=== PATIENT | male | born 1965 | race Caucasian/White ===

== ENCOUNTER 2017-11-05 15:51 | Emergency (ER) | payer OTHER ==
[~2017-11-05] VITALS: Ht 172.7 cm; Wt 72.6 kg
--- NOTE | 2017-11-05 16:31 | ER Report ---
History and Physical Time Seen By MD: 16:04 Hx. of Stated Complaint: PT SEEN IN ULTRASOUND TODAY. HAS CLOT IN RIGHT LEG. HERE FOR LABS AND MEDICATION. HPI/ROS CHIEF COMPLAINT: DVT HISTORY OF PRESENT ILLNESS: This is a 51-year-old male who presents to the emergency department from the ultrasound department for a DVT confirmed by ultrasound. The patient was seen in May by Dr. Bains at [facility] for right calf pain which they attribute it to a muscle tear, several weeks later the patient return to [facility] for reevaluation was still uncomfortable they still felt that this was a calf tear. The patient states that he hasn't had any issues really since, until this past he did develop some right leg discomfort with swelling. Patient states that the swelling increased over the course the weekend and down into his calf however the majority of the pain and edema were in the thigh. He followed up with Dr. Bains today, was sent for an ultrasound which was positive for a clot from femoral down to the calf. Dr. Bains subsequently sent the to the emergency department for a hypercoagulable panel as well as anticoagulant dosing. Patient denies shortness of breath, chest pain, nausea, vomiting, diarrhea, headaches no dysuria or diarrhea. REVIEW OF SYSTEMS: Constitutional: No fever, no chills. Eyes: No discharge. ENT: No sore throat. Cardiovascular: No chest pain, no palpitations. Respiratory: No cough, no shortness of breath. Gastrointestinal: No abdominal pain, no vomiting. Genitourinary: No hematuria. Musculoskeletal: As above. Skin: No rashes. Neurological: No headache. Allergies: Coded Allergies: No Known Drug Allergies (Unverified , 11/05/17) Home Meds Active Scripts Rivaroxaban 15 Mg (XARELTO 15 MG) 15 Mg Tablet, 15 MG PO BID for 21 Days, #42 TAB Prov:CARMENCITAGLENDARADHABIGG QUALITY CHECKER-BC 11/05/17 Past Medical/Surgical History Patient has a past medical and surgical history of rosacea, wears glasses, hernia repair as a child, ear tubes, vasectomy and reversal. Reviewed Nurses Notes: Yes Hx Substance Use Disorder: No Hx Alcohol Use: No Constitutional Vital Sign - Last 24 Hours 11/05/17 11/05/17 15:56 17:58 Pulse 96 72 Resp 16 18 B/P (MAP) 144/103 132/87 (102) Pulse Ox 95 84 O2 Delivery Room Air Room Air Physical Exam General Appearance: The patient is alert, has no immediate need for airway protection and no signs of toxicity. Eyes: Pupils equal and round no pallor or injection. ENT, Mouth: Mucous membranes are moist. Respiratory: There are no retractions, lungs are clear to auscultation. Cardiovascular: Regular rate and rhythm, no murmurs, clicks or rubs. Gastrointestinal: Abdomen is soft and non tender, no masses, bowel sounds normal. Neurological: Alert and oriented 4. Moving all extremities. Following all commands. No focal neuro deficits. Skin: Warm and dry, no rashes. Musculoskeletal: Neck is supple non tender. Extremities right leg discomfort, the right leg is slightly larger than the left leg. The right calf is 38cm, left calf is 35 cm. Dorsalis pedal and posterior tibial pulses palpable. Cap refill <2sec. DIFFERENTIAL DIAGNOSIS: After history and physical exam differential diagnosis was considered for DVT. Medical Decision Making Data Points Result Diagram: 11/05/17 1639 11/05/17 1639 Laboratory Hematology Test 11/05/17 16:39 Red Blood Count 5.39 M/uL (4.00-5.60) Mean Corpuscular Volume 86.3 fL (80.0-96.0) Mean Corpuscular Hemoglobin 29.4 pg (26.0-33.0) Mean Corpuscular Hemoglobin Concent 34.1 g/dL (32.0-36.0) Red Cell Distribution Width 14.3 % (11.5-14.5) Mean Platelet Volume 6.9 fL (7.2-11.1) Neutrophils (%) (Auto) 66.0 % (39.4-72.5) Lymphocytes (%) (Auto) 23.4 % (17.6-49.6) Monocytes (%) (Auto) 7.0 % (4.1-12.4) Eosinophils (%) (Auto) 2.3 % (0.4-6.7) Basophils (%) (Auto) 1.3 % (0.3-1.4) Nucleated RBC Relative Count (auto) 0.0 /100WBC Neutrophils # (Auto) 4.6 K/uL (2.0-7.4) Lymphocytes # (Auto) 1.6 K/uL (1.3-3.6) Monocytes # (Auto) 0.5 K/uL (0.3-1.0) Eosinophils # (Auto) 0.2 K/uL (0.0-0.5) Basophils # (Auto) 0.1 K/uL (0.0-0.1) Nucleated RBC Absolute Count (auto) 0.00 K/uL Prothrombin Time 13.3 seconds (12.0-14.4) Prothromb Time International Ratio 1.01 Activated Partial Thromboplast Time 32 seconds (23-35) Sodium Level 138 mmol/L (137-145) Potassium Level 4.3 mmol/L (3.5-5.0) Chloride Level 102 mmol/L (98-107) Carbon Dioxide Level 28 mmol/L (22-30) Blood Urea Nitrogen 15 mg/dl (9-21) Creatinine 1.10 mg/dl (0.66-1.25) Glomerular Filtration Rate Calc > 60.0 Random Glucose 83 mg/dl (75-110) Calcium Level 9.0 mg/dl (8.4-10.2) Total Bilirubin 0.6 mg/dl (0.2-1.3) Aspartate Amino Transf (AST/SGOT) 24 U/L (0-35) Alanine Aminotransferase (ALT/SGPT) 33 U/L (0-56) Alkaline Phosphatase 113 U/L (0-126) Total Protein 7.0 gm/dl (6.3-8.2) Albumin 3.8 g/dl (3.5-5.0) Chemistry Test 11/05/17 16:39 White Blood Count 7.0 k/uL (4.5-11.0) Red Blood Count 5.39 M/uL (4.00-5.60) Hemoglobin 15.8 g/dL (14.0-18.0) Hematocrit 46.5 % (42.0-52.0) Mean Corpuscular Volume 86.3 fL (80.0-96.0) Mean Corpuscular Hemoglobin 29.4 pg (26.0-33.0) Mean Corpuscular Hemoglobin Concent 34.1 g/dL (32.0-36.0) Red Cell Distribution Width 14.3 % (11.5-14.5) Platelet Count 241 K/uL (150-450) Mean Platelet Volume 6.9 fL (7.2-11.1) Neutrophils (%) (Auto) 66.0 % (39.4-72.5) Lymphocytes (%) (Auto) 23.4 % (17.6-49.6) Monocytes (%) (Auto) 7.0 % (4.1-12.4) Eosinophils (%) (Auto) 2.3 % (0.4-6.7) Basophils (%) (Auto) 1.3 % (0.3-1.4) Nucleated RBC Relative Count (auto) 0.0 /100WBC Neutrophils # (Auto) 4.6 K/uL (2.0-7.4) Lymphocytes # (Auto) 1.6 K/uL (1.3-3.6) Monocytes # (Auto) 0.5 K/uL (0.3-1.0) Eosinophils # (Auto) 0.2 K/uL (0.0-0.5) Basophils # (Auto) 0.1 K/uL (0.0-0.1) Nucleated RBC Absolute Count (auto) 0.00 K/uL Prothrombin Time 13.3 seconds (12.0-14.4) Prothromb Time International Ratio 1.01 Activated Partial Thromboplast Time 32 seconds (23-35) Glomerular Filtration Rate Calc > 60.0 Calcium Level 9.0 mg/dl (8.4-10.2) Total Bilirubin 0.6 mg/dl (0.2-1.3) Aspartate Amino Transf (AST/SGOT) 24 U/L (0-35) Alanine Aminotransferase (ALT/SGPT) 33 U/L (0-56) Alkaline Phosphatase 113 U/L (0-126) Total Protein 7.0 gm/dl (6.3-8.2) Albumin 3.8 g/dl (3.5-5.0) Coagulation Test 11/05/17 16:39 Prothrombin Time 13.3 seconds Prothromb Time International Ratio 1.01 Activated Partial Thromboplast Time 32 seconds EKG/Imaging Imaging PATIENT NAME: Antoine Boyd : 1965 MR: [id number] V: [id number] EXAM DATE: ORDERING PHYSICIAN: STAS BAINS TECHNOLOGIST: Location: [facility] [place] Patient: Antoine Boyd : 1965 Visit/Account:[id number] Date of : 11/05/2017 Exam type: VENOUS DOPP LOW RIGHT EXTREMIT History: Torn muscle and right calf, pain spreading into groin area Comparison: None. Findings: There is extensive intraluminal thrombi identified from the right common femoral vein through the superficial femoral veins popliteal veins into the mid posterior tibial and peroneal veins. IMPRESSION: 1. Extensive DVT from the right common femoral vein into the calf veins. Dr. Bains was notified of this finding by telephone at the time the examination. The patient was taken immediately to the emergency room for treatment and evaluation Report Dictated By: Raisa Fernandes MD at 11/05/2017 4:51 PM Report E-Signed By: Raisa Fernandes MD at 11/05/2017 4:54 PM WSN:[email or web address] ED Course/Re-evaluation Clinical Indication for ER IV: IV Access ED Course The patient was admitted to room. A history of physical were obtained. Differential diagnoses were considered. An IV was started. A CBC, CMP and hypercoagulable panel were drawn. CBC and CMP were unremarkable. hypercoagulable studies are a send out. The results were reviewed with the patient. I did speak with Dr. Zacarias as noted below. The patient had no questions and will be sent with a prescription for Xarelto. He will follow up with Mary Marlow before the 21 day dosing is finished, for continuation of Xarelto. The patient had no other questions or concerns at this time and was discharged home. He was encouraged to return to the ED for worsening symptoms or shortness of breath. 11/05/2017 5:35:53 pm I did speak with Dr. Zacarias regarding the patient's case he feels we can treat outpatient with Xarelto and have him follow up with his primary care provider. Decision to Disposition Date: Nov 05, 2017 Decision to Disposition Time: 17:46 Depart Departure Latest Vital Signs Vital Signs Date Time Temp Pulse Resp B/P (MAP) Pulse Ox O2 Delivery O2 Flow Rate FiO2 11/05/17 17:58 72 18 132/87 (102) 84 Room Air Impression: Primary Impression: Dvt femoral (deep venous thrombosis) Condition: Improved Disposition: HOME OR SELF-CARE New Scripts Rivaroxaban 15 Mg (XARELTO 15 MG) 15 Mg Tablet 15 MG PO BID for 21 Days, #42 TAB Prov: BIGG HOUSTON 11/05/17 Patient Instructions: Deep Venous Thrombosis (ED), Safe Use of Anticoagulants ( ED) Additional Instructions: Drink plenty of fluids. Get plenty of rest. Take the Xarelto as indicated. You must follow up with Mary Marlow before the 21 day prescription is up on your Xarelto. If you have any chest pain or shortness of breath please return to the emergency department as soon as possible or follow up with the nearest emergency department. Problem Qualifiers Primary Impression: Dvt femoral (deep venous thrombosis) Chronicity: unspecified Laterality: right Qualified Codes: I82.411 - Acute embolism and thrombosis of right femoral vein BIGG HOUSTON QUALITY CHECKER- Nov 05, 2017 16:31
[2017-11-05 16:51] LABS: PLATELET COUNT, AUTOMATED 241 K/uL (150-450)
[2017-11-05 16:58] LABS: INR 1.01
[2017-11-05] MEDS ORDERED: RIVA15TA PO (17:52)
[2017-11-05 17:58] VITALS: BP 132/87
== END 2017-11-05 18:00 | disposition home or self-care (01) ==
LOC: ER 15:56
DX: I82.411 Acute embolism and thrombosis of right femoral vein (principal)
CPT/HCPCS: 81241; 81291; 82040; 82247; 82310; 82374; 82435; 82565; 82947; 83090; 84075; 84132; 84155; 84295; 84450; 84460; 84520; 85025; 85300; 85303; 85306; 85610; 85613; 85730; 86147; 99284

== ENCOUNTER → 2017-11-05 | Outpatient (CLI) | payer OTHER ==
[~2017-11-05] MED LIST: RIVA15TA PO
--- NOTE | 2017-11-05 16:58 | RADIOLOGY IMAGING REPORT ---
FACILITY: [facility] PATIENT NAME: Antoine Boyd : 1965 MR: [id number] V: [id number] EXAM DATE: ORDERING PHYSICIAN: STAS BAINS TECHNOLOGIST: Location: [facility] Patient: Antoine Boyd : 1965 Visit/Account:[id number] Date of Sevice: 11/05/2017 Exam type: VENOUS DOPP LOW RIGHT EXTREMIT History: Torn muscle and right calf, pain spreading into groin area Comparison: None. Findings: There is extensive intraluminal thrombi identified from the right common femoral vein through the sup erficial femoral veins popliteal veins into the mid posterior tibial and peroneal veins. IMPRESSION: 1. Extensive DVT from the right common femoral vein into the calf veins. Dr. Bains was notified of this finding by telephone at the time the examination. The patient was taken immediately to the [facility] room for treatment and evaluation Report Dictated By: Raisa Fernandes MD at 11/05/2017 4:51 PM Report E-Signed By: Raisa Fernandes MD at 11/05/2017 4:54 PM WSN:[email or web address]
== END ==
LOC: US 14:35
PROVIDERS: ATTEND Orthopaedic Surgery Hand Surgery
DX: I82.491 Acute embolism and thrombosis of other specified deep vein of right lower extremity (principal)

== ENCOUNTER 2017-11-21 15:11 | Outpatient (RCR) | payer OTHER ==
[~2017-11-21] VITALS: Ht 172.5 cm; Wt 73.3 kg
[2017-11-21 15:43] VITALS: BP 127/81
--- NOTE | 2017-11-21 21:12 | ONCOLOGY CONSULTATION ---
EVENT DATE: November 21, 2017 REFERRING PROVIDER Eliecer Florence MD PRIMARY CARE PROVIDER Mary Marlow NP REASON FOR CONSULTATION Right lower extremity DVT. CHIEF COMPLAINT Right leg pain. HISTORY OF PRESENT ILLNESS Antoine is a very pleasant 52-year-old male who is otherwise healthy. He takes excellent care of himself, and he is an avid runner. He does report a history of a superficial thrombosis of the right lower extremity in 2010 that was managed conservatively and symptoms resolved on their own. More recently, in May of last year, he had developed fairly acute right calf pain that he felt was a "ball of pain." He did not see any redness or have swelling. There was some concern at that time that he could have torn a calf muscle. His symptoms eventually resolved, and he got back to running. He again had recurrent symptoms. In July, he had the same calf pain, and he also noted that his right leg hurt when he would cough, as he did have a cold, per his memory at that time. Subsequently, he was shoveling snow, and he developed acute-onset back pain and dyspnea that went away on its own. Thereafter, he had been traveling to [place], [place], and he again had fairly acute onset back pain, this time on the right, associated with dyspnea. Again it lasted about two to three days, and then dissipated on its own. Later on in August of last year, at a time when he was otherwise feeling at his baseline, his leg again felt "tight" while running, and he decided to again take it easy from his running schedule. And then finally, he was told by friends that he could potentially have a clot in his leg, and there were concerns on the part of his massage therapist, and he presented for evaluation. Indeed on November 05, a right lower extremity ultrasound revealed extensive DVT from common femoral vein into the calf veins. He was started on Xarelto and discharged. He remains on the Xarelto, which he is tolerating well. He has had improvement in his right leg symptoms. He has not yet gotten back to a usual state of running, however. He currently reports no shortness of breath, chest pain, palpitations, productive cough, or lightheadedness. He has had no abnormal bleeding while on anticoagulation. Notably, he has already undergone a portion of a hypercoagulability workup. He does not have a family history of thrombosis, but he has been talking to his family members about his recent diagnosis of factor V Leiden heterozygosity. REVIEW OF SYSTEMS Otherwise negative, and all systems were reviewed. PAST MEDICAL HISTORY As above, otherwise unremarkable. CURRENT MEDICATIONS Rivaroxaban 15 mg p.o. b.i.d. ALLERGIES No known drug allergies. SOCIAL HISTORY The patient does not smoke cigarettes or chew tobacco. He has no history of alcohol abuse. He is an avid runner. He has no history of polysubstance abuse. VITAL SIGNS Temperature 99.4, blood pressure 127/81, heart rate is 84, respirations 16, oxygen saturation is 94% on room air. Weight is 73.3 kg. PHYSICAL EXAMINATION GENERAL: Patient is alert and oriented times three in no apparent distress, sitting in the exam room chair. He appears quite healthy. He is interactive and very pleasant. HEENT: Exam reveals anicteric sclerae. No significant oropharyngeal lesions. NEUROLOGIC: Exam is grossly nonfocal and his gait is normal. EXTREMITIES: Exam reveals some slight edema of the right lower extremity, but otherwise unremarkable. SKIN: Exam reveals no concerning rash or lesions. LABORATORY Studies were reviewed per the [facility] record. IMAGING Please see history of present illness. ASSESSMENT AND PLAN Unprovoked right lower extremity proximal deep venous thrombosis, factor V Leiden heterozygosity. I had a very good visit with Mr. Boyd today. He has no known reversible risk factors for the development of thrombosis. He leads a remarkably healthful lifestyle, and he is quite active as a runner. We spent time today discussing the difference between provoked and unprovoked thromboses, as well as reversible and irreversible risk factors for the development of such. As part of his hypercoagulability workup, which is currently somewhat incomplete, he has been noted to be a heterozygote for the factor V Leiden mutation. He was also heterozygous the MTHFR mutation, which has much less, if any impact here. We discussed his options moving forward. I do think that he should be on anticoagulation for a period of at least six months, given the extent of this DVT, which did go up to the femoral vein. He agrees with this plan. He understands the inherent risk of bleeding while on anticoagulation, but none has been apparent to date. We moved on to discuss appropriate duration of therapy, perhaps beyond six months. As discussed, the presence of factor V Leiden heterozygosity does not automatically translate into a need for indefinite anticoagulation. That said, his DVT is large and unprovoked, and his risk for recurrent thrombosis after stopping anticoagulation would likely be substantial. We discussed the possibility of starting a baby aspirin after six months or more of anticoagulation to potentially reduce his risk of recurrent thrombosis, while at the same time minimizing chances for bleeding. Finally, we discussed the possibility of indefinite anticoagulation, which would not be unreasonable. He understands that he would have ongoing risk of bleeding with indefinite use of a medication such as Xarelto. I have recommended that the patient return to see me in about six months, and I would want him to have a repeat right lower extremity ultrasound to establish a new baseline before we follow up. I have added several items to his hypercoagulability workup, notably a prothrombin gene mutation. We will send him to the lab today. We will plan to discuss things further when he returns to see me in six months. I would be more than happy to see him in the interim if he has questions. Thank you very much for allowing me to take part in the care of this very pleasant patient. Please do not hesitate to call with any questions or concerns. MARYANNE
== END 2017-12-12 09:29 | disposition home or self-care (01) ==
LOC: ONC 15:11
PROVIDERS: ATTEND Internal Medicine Medical Oncology
DX: I82.4Y1 Acute embolism and thrombosis of unspecified deep veins of right proximal lower extremity (principal); D68.51 Activated protein C resistance
CPT/HCPCS: 81240; 86146; 86147; 99202

== ENCOUNTER 2018-05-09 09:49 | Outpatient (RCR) | payer OTHER ==
[2018-05-09 10:00] VITALS: BP 120/78
--- NOTE | 2018-05-09 12:09 | RADIOLOGY IMAGING REPORT ---
FACILITY: [facility] [place] PATIENT NAME: Antoine Boyd : 1965 MR: [id number] V: [id number] EXAM DATE: ORDERING PHYSICIAN: TA GONZALEZ TECHNOLOGIST: Location: [facility] [place] Patient: Antoine Boyd : 1965 Visit/Account:[id number] Date of Sevice: 05/09/2018 Venous Doppler ultrasound of the right lower extremity INDICATION: DVT. COMPARISON: 11/05/2017. FINDINGS: Common femoral greater saphenous junction: Negative. Common femoral vein: Negative. Superficial femoral vein: Chronic partial thrombosis of the mid and distal superficial femoral vein. Popliteal vein: Negative. Calf veins: Negative. Nonvascular findings: None. IMPRESSION: Near-complete resolution of right lower extremity DVT with persistent chronic partial thr ombosis of the mid and distal superficial femoral vein. Report Dictated By: Eliecer Fair MD at 05/09/2018 12:02 PM Report E-Signed By: Eliecer Fair MD at 05/09/2018 12:05 PM WSN:[id number]
--- NOTE | 2018-05-09 19:19 | ONCOLOGY FOLLOW UP NOTE ---
EVENT DATE: May 09, 2018 REASON FOR FOLLOWUP 1. Right lower extremity deep venous thrombosis. 2. Factor V Leiden heterozygosity. 3. Elevated beta-2 glycoprotein IgM. INTERIM HISTORY Antoine returns to clinic for a follow-up visit today. Since our last visit, he has been feeling quite well. He remains on Xarelto. He has had no problems with bruising or abnormal bleeding. He has been running extensively, and he feels that he is basically back to his baseline in terms of endurance and training. He reports no new redness, swelling, or pain of the right leg. He denies shortness of breath, chest pain, productive cough, palpitations, and lightheadedness. He still feels that the right calf is a little bit bigger than the left, and he has noticed some prominent superficial veins over the right leg. He underwent an ultrasound earlier today, and the results of this ultrasound are pending. REVIEW OF SYSTEMS Otherwise negative, and all systems were reviewed. PAST MEDICAL HISTORY As above, otherwise unremarkable. CURRENT MEDICATIONS Rivaroxaban 15 mg p.o. b.i.d. ALLERGIES No known drug allergies. SOCIAL HISTORY The patient does not smoke cigarettes or chew tobacco. He has no history of alcohol abuse. He is an avid runner. He has no history of polysubstance abuse. VITAL SIGNS Temperature 98.0, blood pressure 120/78, heart rate is 55, respirations 16, oxygen saturation is 97% on room air. PHYSICAL EXAMINATION GENERAL: Patient is alert and oriented times three in no apparent distress, sitting in the exam room chair. He appears quite healthy and fit. HEENT: Exam reveals anicteric sclerae. NEUROLOGIC: Exam is grossly nonfocal and his gait is normal. EXTREMITIES: Exam reveals no clubbing or cyanosis. His right calf is about 1/ 2 inch larger in circumference than the left calf. He does have some nontender varicosities over the right lower extremity, but no evidence of superficial thrombophlebitis. LABORATORY Studies were [facility] the [facility] record. ASSESSMENT AND PLAN Extensive right lower extremity deep venous thrombosis, positive beta-2 glycoprotein IgM, factor V Leiden heterozygosity. I had a good visit with Antoine today. Symptomatically, he is doing remarkably well. He continues on Xarelto, and he is having no problem with the medication. He has no new signs or symptoms to suggest recurrent thrombosis, and he has had no abnormal bleeding. The Xarelto has been affordable. We spent time today reviewing his labs. He is already aware of his factor V Leiden heterozygosity, but he also has a very high anti-beta-2 glycoprotein IgM. As discussed, this is potentially concerning for the antiphospholipid antibody syndrome. That lab was drawn about six months ago, and we discussed the merits of rechecking this study today. He is in favor of it, and this will be ordered. I will get back to him with the result. If positive, the antiphospholipid antibody syndrome will be diagnosed, although he understands that there have been reports of false positives in evaluation for circulatory inhibitors in patients on medication such as Xarelto. Independent of his hypercoagulability testing, Antoine did have an unprovoked and large right lower extremity DVT. This, in conjunction with his prior history would suggest indefinite anticoagulation as a very realistic option for him. We discussed the risk of bleeding while on Xarelto versus the risk of recurrent thrombosis should he stop. With further discussion today, we have agreed that he will continue with anticoagulation indefinitely. He has done well with Xarelto, and I do not believe he needs to transition to Coumadin at this point, given concern for the antiphospholipid syndrome. He will call with new symptoms or concerns, however. We will be back in touch with him with his laboratory results, and I will tentatively plan to see him again here in clinic in about one year's time. The patient had several additional questions for me today. I believe I answered all of his questions to his satisfaction. I spent a total of 30 minutes of time face to face with the patient today, 25 minutes of this was spent in direct counseling and coordination of care. MARYANNE
== END 2018-05-17 09:42 | disposition home or self-care (01) ==
LOC: ONC 09:49
PROVIDERS: ATTEND Internal Medicine Medical Oncology
DX: I82.411 Acute embolism and thrombosis of right femoral vein (principal); D68.51 Activated protein C resistance; E77.1 Defects in glycoprotein degradation; Z79.01 Long term (current) use of anticoagulants
CPT/HCPCS: 86146; 99212